=== PATIENT | male | born 1990 | race Caucasian/White ===

== ENCOUNTER 2017-11-08 13:53 | Emergency (ER) | payer OTHER ==
[2017-11-08] MEDS ORDERED: Lidocaine 1% MPF* 2 ML VIAL INJ ONE (14:29)
[2017-11-08] MEDS ORDERED: Lidocaine 1%* 5 ML VIAL INJ ONE (14:30)
--- NOTE | 2017-11-08 15:22 | UC ---
Skin Complaint HPI - HPI Summary HPI Summary: Patient is a 27-year-old male who presents to the with paronychia to the left middle finger. Endorses pain, swelling, redness 3 days. Denies any known injury or tearing of the fingernail or female. Has never had this before. Denies any fevers, sweats, chills. Denies any other illness. - History of Current Complaint Chief Complaint: [facility] Time Seen by Provider: 11/08/17 14:25 Stated Complaint: RED SWOLLEN FINGER TIP Hx Obtained From: Patient Onset/Duration: Gradual Onset Skin Exposure Onset/Duration: Hours Ago Timing: Constant Onset Severity: Moderate Current Severity: Moderate Pain Intensity: 5 Pain Scale Used: 0-10 Numeric Aggravating Factor(s): Nothing Alleviating Factor(s): Nothing Associated Signs & Symptoms: Positive: Negative - Allergy/Home Medications Allergies/Adverse Reactions: Allergies Allergy/AdvReac Type Severity Reaction Status Date / Time No Known Allergies Allergy Verified 11/08/17 14:23 Review of Systems Constitutional: Negative Skin: Other - paronychia Cardiovascular: Negative Motor: Negative Neurovascular: Negative Musculoskeletal: Negative Neurological: Negative Is Patient Immunocompromised?: No All Other Systems Reviewed And Are Negative: Yes PMH/Surg Hx/FS Hx/Imm Hx Previously Healthy: Yes - Surgical History Surgical History: None - Social History Occupation: Employed Full-time Lives: With Family Alcohol Use: Occasionally Substance Use Type: None Smoking Status (MU): Never Smoked Tobacco Physical Exam Triage Information Reviewed: Yes Appearance: Well-Appearing, No Pain Distress, Well-Nourished Vital Signs: Initial Vital Signs Temp 98.3 F 11/08/17 14:19 Pulse 84 11/08/17 14:19 Resp 16 11/08/17 14:19 BP 105/66 11/08/17 14:19 Pulse Ox 98 11/08/17 14:19 Vital Signs Reviewed: Yes Eye Exam: Normal Eyes: Positive: Conjunctiva Clear Neck exam: Normal Neck: Positive: Supple Respiratory Exam: Normal Respiratory: Positive: Chest non-tender, Lungs clear Cardiovascular Exam: Normal Cardiovascular: Positive: RRR Musculoskeletal Exam: Normal Musculoskeletal: Positive: Strength Intact Skin: Positive: Other - paronychia to the left middle finger Course/Dx - Course Course Of Treatment: During the course of treatment, the patient is evaluated for an acute paronychia to the left finger. Povadine swab. 2ml Lidocaine used as digital block with good effect. 11 blade used for .3cm incision with serosanguinous drainage with small amount of purulent drainage. Gauze wrapped. Patient is given return precautions. - Diagnoses Provider Diagnoses: Paronychia Discharge - Sign-Out/Discharge Documenting (check all that apply): Discharge/Admit/Transfer - Discharge Plan Condition: Stable Disposition: HOME Prescriptions: Cephalexin CAP* [Keflex CAP*] 500 mg PO BID #10 cap MDD 2 Patient Education Materials: Paronychia (ED) Referrals: No Primary Care Phys,NOPCP [Primary Care Provider] - Additional Instructions: Warm soaks 3-4 times daily x 3 days Keflex twice daily x 5 days Keep the area covered x 1 day - Billing Disposition and Condition Condition: STABLE Disposition: Home
--- NOTE | 2017-11-10 15:13 | UC ---
- Progress Note Progress Note: Wound culture returned with Fusobacterium and Peptostreptococcus Anaerobius. For better anaerobic coverage he should be switched to Clindamycin. Most times, however, I&D alone is enough treatment. If pt symptoms are improving - may continue current antibiotic. If pt symptoms are NOT improving - will switch to Clindamycin. Discharge - Sign-Out/Discharge Documenting (check all that apply): Post-Discharge Follow Up - Discharge Plan Condition: Stable Disposition: HOME Prescriptions: Cephalexin CAP* [Keflex CAP*] 500 mg PO BID #10 cap MDD 2 Patient Education Materials: Paronychia (ED) Referrals: No Primary Care Phys,NOPCP [Primary Care Provider] - Additional Instructions: Warm soaks 3-4 times daily x 3 days Keflex twice daily x 5 days Keep the area covered x 1 day - Billing Disposition and Condition Condition: STABLE Disposition: Home
== END 2017-11-08 16:04 | disposition home or self-care (01) ==
LOC: UCEAST 13:53
DX: L03.012 Cellulitis of left finger (principal)
CPT/HCPCS: 87070; 87076; 87205; 99202; G0463